=== PATIENT | male | born 1960 | race Caucasian/White ===

== ENCOUNTER 2020-12-26 12:15 | Emergency (ER) | payer SELFPAY ==
[~2020-12-26] VITALS: Ht 177.8 cm; Wt 72.6 kg
[2020-12-26] MEDS ORDERED: PREDNISONE20 M1 PO (13:48)
[2020-12-26] MEDS ORDERED: ROBAXIN-750750 MG PO (13:48)
== END 2020-12-26 14:19 | disposition home or self-care (01) ==
LOC: ED 12:15
DX: M54.42 Lumbago with sciatica, left side (principal)

== ENCOUNTER 2022-08-25 09:20 | Inpatient (IN) | payer SELFPAY ==
[~2022-08-25] VITALS: Wt 83.9 kg
[~2022-08-25 09:20] MED LIST: PREDNISONE20 M1 PO; ROBAXIN-750750 MG PO
[2022-08-25 09:36] VITALS: BP 138/71
[2022-08-25 10:54] LABS: BASO % 0.3 % (0.0-1.0); EOS % 0.3 % (1.0-4.0); HEMATOCRIT 39.2 % (42.0-52.0); LYMPH # 0.2 10*3/uL (1.3-4.4); LYMPH % 4.1 % (27.0-41.0); MEAN CELL VOLUME 92.5 fl (80.0-94.0); MEAN CORPUSCULAR HGB 31.4 pg (27.0-31.0); MEAN CORPUSCULAR HGB CONC 33.9 g/dl (33.0-37.0); MEAN PLATELET VOLUME 9.6 fl (9.6-12.3); MONO # 0.3 10*3/uL (0.1-1.0); MONO % 8.2 % (3.0-9.0); NEUT # 3.4 10*3/uL (2.3-7.9); NEUT % 86.8 % (47.0-73.0); PLATELET COUNT AUTOMATED 230 10*3/uL (130-400); RED BLOOD COUNT 4.24 10*6/uL (4.50-5.90); RED CELL DISTRI WIDTH 11.2 % (0-14.5); WHITE BLOOD COUNT 3.9 10*3/uL (4.8-10.8)
[2022-08-25 11:05] LABS: ACT PARTIAL THROMBO TIME 29.1 SECONDS (20.0-32.1)
[2022-08-25 11:07] LABS: CHLORIDE 105 mmol/L (98-107); POTASSIUM 4.3 mmol/L (3.4-5.1); SODIUM 137 mmol/L (136-145)
[2022-08-25 11:15] LABS: CREATININE 0.94 mg/dL (0.70-1.30)
[2022-08-25 11:16] LABS: ALKALINE PHOSPHATASE 64 U/L (46-116); BUN 10 mg/dl (9-23)
[2022-08-25 11:17] LABS: SGPT/ALT 25 U/L (10-49)
[2022-08-25 11:18] LABS: TOTAL PROTEIN 6.4 gm/dL (6.0-8.0)
[2022-08-25 21:11] VITALS: BP 129/76
[2022-08-26 05:10] VITALS: BP 135/69
[2022-08-26 07:36] LABS: BASO % 0.3 % (0.0-1.0); HEMATOCRIT 36.6 % (42.0-52.0); LYMPH # 0.7 10*3/uL (1.3-4.4); LYMPH % 20.6 % (27.0-41.0); MEAN CELL VOLUME 94.1 fl (80.0-94.0); MEAN CORPUSCULAR HGB 31.1 pg (27.0-31.0); MEAN CORPUSCULAR HGB CONC 33.1 g/dl (33.0-37.0); MEAN PLATELET VOLUME 9.9 fl (9.6-12.3); MONO # 0.4 10*3/uL (0.1-1.0); MONO % 12.3 % (3.0-9.0); NEUT # 2.3 10*3/uL (2.3-7.9); NEUT % 66.5 % (47.0-73.0); PLATELET COUNT AUTOMATED 189 10*3/uL (130-400); RED BLOOD COUNT 3.89 10*6/uL (4.50-5.90); RED CELL DISTRI WIDTH 11.4 % (0-14.5); WHITE BLOOD COUNT 3.5 10*3/uL (4.8-10.8)
[2022-08-26 07:56] LABS: CHLORIDE 107 mmol/L (98-107); SODIUM 136 mmol/L (136-145)
[2022-08-26 08:02] LABS: BUN 11 mg/dl (9-23); CREATININE 0.94 mg/dL (0.70-1.30)
[2022-08-26 08:42] LABS: VITAMIN D, 25-HYDROXY 48.5 ng/mL (30-100)
[2022-08-26 11:46] VITALS: BP 137/79
[2022-08-26] MEDS ORDERED: AUGMENTIN600 MG/5 M PO (12:01)
[2022-08-26] MEDS ORDERED: HYDROCODONE-AC1 EAC1 PO (12:03)
== END 2022-08-26 12:20 | disposition home or self-care (01) | DRG 872 ==
LOC: ED 09:20 → EDHOLD 14:33
PROVIDERS: Emergency Medicine; Student in an Organized Health Care Education/Training Program; ADMIT Internal Medicine; ATTEND Internal Medicine
DX: A41.9 Sepsis, unspecified organism (principal); K04.7 Periapical abscess without sinus; D64.9 Anemia, unspecified; F17.210 Nicotine dependence, cigarettes, uncomplicated; M54.30 Sciatica, unspecified side; Z71.6 Tobacco abuse counseling